=== PATIENT | male | born 1940 | race Caucasian/White ===

== ENCOUNTER 2020-10-08 08:53 | Emergency (ER) | payer MEDICARE, BC ==
[~2020-10-08] VITALS: Ht 180.3 cm; Wt 90.9 kg
[2020-10-08 09:02] VITALS: TEMP 98
[2020-10-08 12:13] VITALS: BP 139/73; PULSE 50
== END 2020-10-08 11:05 | disposition home or self-care (01) ==
LOC: COL.ER 08:53
DX: S09.90XA Unspecified injury of head, initial encounter (principal); S01.01XA Laceration without foreign body of scalp, initial encounter; M54.2 Cervicalgia; E10.9 Type 1 diabetes mellitus without complications; I10 Essential (primary) hypertension; Z23 Encounter for immunization; W01.198A Fall on same level from slipping, tripping and stumbling with subsequent striking against other object, initial encounter; Y93.K1 Activity, walking an animal

== ENCOUNTER 2023-01-12 15:20 | Observation (INO) | payer MEDICARE, BC ==
[~2023-01-12] VITALS: Ht 177.8 cm; Wt 95.2 kg
[2023-01-12 15:48] LABS: BASO # 0.1 K/mm3 (0.0-0.2); BASO % 0.3 % (0.0-2.0); EOS # 0.2 K/mm3 (0.0-0.7); EOS % 1.4 % (0.0-4.0); GRAN # 11.2 K/mm3 (1.4-6.5); GRAN % 76.7 % (42.2-75.2); HEMATOCRIT 42.7 % (42.0-52.0); LYMPH # 1.8 K/mm3 (1.2-3.4); MEAN CELL VOLUME 88 fl (80.0-100.0); MEAN CORPUSCULAR HEMOGLOBIN 31 pg (27-31); MEAN CORPUSCULAR HGB CONC 35 g/dl (33.0-37.0); MONO # 1.3 K/mm3 (0.1-0.6); MONO % 8.8 % (1.7-9.3); PLATELET COUNT 252 K/mm3 (130-400); RED BLOOD COUNT 4.83 M/mm3 (4.20-5.60); REDCELL DISTRIBUTION WIDTH-CV 12.2 % (11.5-14.5)
[2023-01-12 15:52] LABS: PROTHROMBIN TIME 10.5 SECONDS (9.7-12.8)
[2023-01-12 16:03] LABS: ALANINE AMINOTRANSFERASE 18 U/L (0-55); ALBUMIN 3.5 gm/dL (3.4-4.8); ALKALINE PHOSPHATASE 101 U/L (40-150); ANION GAP 10 mmol/L (7-16); AST,SGOT 16 U/L (5-34); BILIRUBIN,TOTAL 0.5 mg/dL (0.2-1.2); BLOOD UREA NITROGEN 12 mg/dL (8-26); CALCIUM 10.1 mg/dL (8.4-10.2); CARBON DIOXIDE 24 mmol/L (23-31); CHLORIDE 97 mmol/L (98-107); CREATINE KINASE 51 U/L (30-200); CREATININE, serum 0.86 mg/dL (0.72-1.25); GLUCOSE 141 mg/dL (70-99); POTASSIUM 3.3 mmol/L (3.5-4.5); SODIUM 131 mmol/L (136-145); TOTAL PROTEIN 6.6 gm/dL (6.2-8.1); TROPONIN-I < 0.010 ng/mL (0.00-0.033)
[2023-01-12 19:45] VITALS: BP 142/68; PULSE 67; TEMP 98.4
[2023-01-12 20:50] VITALS: BP_SYST 142
[2023-01-12] MEDS ORDERED: FLOMAX 0.40.4 MG/CAP PO (21:11)
[2023-01-12] MEDS ORDERED: OMEGA-3 1000 MG1 CAP PO (21:11)
[2023-01-12] MEDS ORDERED: LIPITOR 40MG TA40 MG PO (21:12)
[2023-01-12] MEDS ORDERED: COZAAR 50MG50 MG/TAB PO (21:13)
[2023-01-12] MEDS ORDERED: EUTHYROX175 MCG PO (21:14)
[2023-01-12] MEDS ORDERED: SINGULAIR 110 MG/TAB PO (21:15)
[2023-01-12] MEDS ORDERED: PRIL40 PO (21:16)
[2023-01-12] MEDS ORDERED: LOZOL 2.5M2.5 MG/TAB PO (21:17)
[2023-01-12] MEDS ORDERED: ASPIRIN E.C. 8181 MG PO (21:18)
[2023-01-12] MEDS ORDERED: VITAMIN E 400 U4001 PO (21:24)
[2023-01-12] MEDS ORDERED: PROFERRIN ES12 MG PO (21:25)
[2023-01-12] MEDS ORDERED: INSULIN AS100 UNIT/2 (21:26)
[2023-01-12 23:44] VITALS: BP 136/67; PULSE 69; TEMP 98.2
[2023-01-13 00:05] VITALS: BP_SYST 136
[2023-01-13 02:57] VITALS: BP 125/58; PULSE 68; TEMP 98
[2023-01-13 04:05] VITALS: BP_SYST 125
--- NOTE | 2023-01-13 05:05 | NUR ---
PT ARRIVED TO THE MEDICAL FLOOR AROUND 1945HRS TO ROOM 319. PT A&O X 4; VSS; O2 RA. PT COMPLAINED OF HEARTBURN. HOSPITALIST CALLED. PROTONIX ORDERED AND GIVEN. PT DENIED GENERAL PAIN, CHEST PAIN, PALPITATIONS, SOB, N,V,D OR DIZZINESS. ADMISSIONS ASSESSMENT AND MED REC COMPLETE. PT HAS CAST TO RLE AND USES A KNEE SCOOTER TO ACCESS WITH AMBULATION. PT ORIENTED TO ROOM AND HOSPITAL POLICY. ALL QUESTIONS AND CONCERNS ADDRESSED. PT EXPRESSED NO ADDITIONAL NEEDS AT THIS TIME. CALL LIGHT WITHIN REACH.
[2023-01-13 06:13] LABS: HEMOGLOBIN 13.1 g/dl (13.5-18.0); MEAN CELL VOLUME 88 fl (80.0-100.0); MEAN CORPUSCULAR HEMOGLOBIN 31 pg (27-31); MEAN CORPUSCULAR HGB CONC 35 g/dl (33.0-37.0); MEAN PLATELET VOLUME 9.1 fl (7.4-10.4); PLATELET COUNT 222 K/mm3 (130-400); REDCELL DISTRIBUTION WIDTH-CV 12.2 % (11.5-14.5)
[2023-01-13 06:30] LABS: ALBUMIN 2.7 gm/dL (3.4-4.8); BILIRUBIN,TOTAL 0.8 mg/dL (0.2-1.2); CALCIUM 9.2 mg/dL (8.4-10.2); CREATININE, serum 0.78 mg/dL (0.72-1.25); TOTAL PROTEIN 5.3 gm/dL (6.2-8.1)
[2023-01-13 07:08] VITALS: BP 139/67; PULSE 63; TEMP 98
--- NOTE | 2023-01-13 08:50 | NUR ---
PT AWAKE IN ROOM UPON ENTERING. ASSESSMENT DONE, PT DENIES PAIN AT THIS TIME. FLUIDS RUNNING PER ORDER AND LUNGS CTA. PT HAS CAST TO RIGHT LOWER EXTREMITY, NO SWELLING OR REDNESS NOTED AROUND TOP AND BOTTOM OF CAST. THIS NURSE IS ABLE TO FIT 2 FINGERS IN CAST BUT UNABLE TO CHECK PULSES ON RIGHT FOOT, PT DENIES PAIN AROUND OR INSIDE CAST. BED IN LOWEST POSITION, CALL LIGHT IN REACH.
[2023-01-13 09:00] VITALS: BP_SYST 139
[2023-01-13 11:05] VITALS: BP 131/62; PULSE 66; TEMP 98.6
--- NOTE | 2023-01-13 12:32 | NUR ---
Care Transition Coordinator rounds: Patient and his are waiting for paperwork to go home today. Care Transition Coordinator provided them a newspaper. Patient's and Care Transition Coordinator know each other from another healthcare provider. and Care Transition Coordinator spoke about that time. Care Transition Coordinator wished them well and safety on their way home today.
--- NOTE | 2023-01-13 12:57 | NUR ---
IV AND TELE REMOVED. DISCHARGE INSTRUCTIONS GIVEN TO PT AND , BOTH VERBALIZED UNDERSTANDING. NEW MEDICATION GIVEN BY PHARMASCIST AND PERSONAL MEDS GIVEN BACK TO PT. PT DENIES NEEDS AT THIS TIME. PT ESCORTED BY STAFF TO PERSONAL VEHICLE WITH PERSONAL WALKER.
--- NOTE | 2023-01-13 14:31 | NUR ---
SW met with patient to complete intake. Patient provides that he lives with spouse Denise Tobar [phone]. Patient provides that he utilizes a knee walker, is independent with ADL's, and does not utilize HH services at this time. PCP is Dr. Nicole, and pharmacy is [facility]. Appointed DPOA is spouse, and dc plan is home. SW will continue to follow. DC plan: home
[2023-01-13] MEDS ORDERED: ELIQUIS 5MG PO (16:46)
== END 2023-01-13 13:00 | disposition home or self-care (01) ==
LOC: COL.ER 15:20 → MEDICAL 18:46 → COL.ER 18:56 → MEDICAL 18:56
PROVIDERS: Emergency Medicine; Physician Assistant; ADMIT Internal Medicine
DX: I26.99 Other pulmonary embolism without acute cor pulmonale (principal); I25.10 Atherosclerotic heart disease of native coronary artery without angina pectoris; I10 Essential (primary) hypertension; E11.9 Type 2 diabetes mellitus without complications; G47.33 Obstructive sleep apnea (adult) (pediatric); E87.6 Hypokalemia; E03.9 Hypothyroidism, unspecified; N40.0 Benign prostatic hyperplasia without lower urinary tract symptoms; E78.5 Hyperlipidemia, unspecified; Z95.5 Presence of coronary angioplasty implant and graft; Z79.899 Other long term (current) drug therapy; Z79.890 Hormone replacement therapy
CPT/HCPCS: G0378; J1650; J3480; J7030; Q9967

== ENCOUNTER 2024-01-16 09:20 | Inpatient (IN) | payer MEDICARE, BC ==
[~2024-01-16] VITALS: Ht 177.8 cm; Wt 89.1 kg
[2024-01-16] VITALS (159 sets, daily range): BP systolic 116–136; BP diastolic 55–59; PULSE 75–77; TEMP 97.9–98.7; O2SAT 89–100
[~2024-01-16 09:20] MED LIST: ASPIRIN E.C. 8181 MG PO; COZAAR 50MG50 MG/TAB PO; ELIQUIS 5MG PO; EUTHYROX175 MCG PO; FLOMAX 0.40.4 MG/CAP PO; INSULIN AS100 UNIT/2; IRON TABLETS325 MG PO; LIPITOR 40MG TA40 MG PO; LOZOL 2.5M2.5 MG/TAB PO; OMEGA-3 1000 MG1 CAP PO; PRIL40 PO; SINGULAIR 110 MG/TAB PO; VITAMIN E 400 U4001 PO
[2024-01-16] MEDS ORDERED: NS 1,000 ML IV ONE (10:15)
[2024-01-16 10:24] LABS: BASO # 0.1 K/mm3 (0.0-0.2); BASO % 0.6 % (0.0-2.0); EOS # 0.2 K/mm3 (0.0-0.7); EOS % 1.5 % (0.0-4.0); GRAN # 10.3 K/mm3 (1.4-6.5); GRAN % 72.7 % (42.2-75.2); HEMATOCRIT 43.2 % (42.0-52.0); HEMOGLOBIN 14.8 g/dl (13.5-18.0); LYMPH # 2.7 K/mm3 (1.2-3.4); MEAN CELL VOLUME 92 fl (80.0-100.0); MEAN CORPUSCULAR HEMOGLOBIN 32 pg (27-31); MEAN CORPUSCULAR HGB CONC 34 g/dl (33.0-37.0); MEAN PLATELET VOLUME 9.7 fl (7.4-10.4); MONO # 0.8 K/mm3 (0.1-0.6); MONO % 5.4 % (1.7-9.3); PLATELET COUNT 279 K/mm3 (130-400); REDCELL DISTRIBUTION WIDTH-CV 12.3 % (11.5-14.5)
[2024-01-16 10:37] LABS: ALANINE AMINOTRANSFERASE 18 U/L (0-55); ALBUMIN 3.6 g/dL (3.4-4.8); ALKALINE PHOSPHATASE 81 U/L (40-150); ANION GAP 22 mmol/L (7-16); AST,SGOT 16 U/L (5-34); BILIRUBIN,TOTAL 1.1 mg/dL (0.2-1.2); BLOOD UREA NITROGEN 29 mg/dL (8-26); CALCIUM 10.6 mg/dL (8.4-10.2); CHLORIDE 96 mEq/L (98-107); CREATININE, serum 1.57 mg/dL (0.72-1.25); LIPASE 12 U/L (8-78); POTASSIUM 4.5 mEq/L (3.5-4.5); SODIUM 133 mEq/L (136-145); TOTAL PROTEIN 6.5 g/dl (6.2-8.1)
[2024-01-16] MEDS ORDERED: Ondansetron 4 MG/2 ML VIAL IV ONE (10:45)
[2024-01-16] MEDS ORDERED: Insulin Human Regular/NS 100 ML IV ONE (11:30)
[2024-01-16 11:41] LABS: GLUCOSE 465 mg/dL (70-99)
[2024-01-16 12:21] LABS: ACETONE,SERUM SMALL
[2024-01-16] MEDS ORDERED: D5 1/2 NS 1,000 ML IV SCH (13:00)
[2024-01-16] MEDS ORDERED: Insulin Human Regular/NS 100 ML IV SCH (13:00)
[2024-01-16] MEDS ORDERED: NS 1,000 ML IV SCH (13:00)
[2024-01-16 14:04] LABS: COLLECTION METHOD CLEAN CATCH
[2024-01-16] MEDS ORDERED: *Potassium Replacement Protocol MC SCH ×2 (14:15→22:45)
[2024-01-16 14:25] LABS: PH 5.5 (5.0-8.5); URINE APPEARANCE CLEAR (CLEAR/HAZY); URINE BLOOD NEGATIVE (NEGATIVE); URINE COLOR YELLOW (YELLOW); URINE GLUCOSE 3+ (NEGATIVE); URINE KETONE 3+ (NEGATIVE); URINE NITRATE NEGATIVE (NEGATIVE); URINE PROTEIN(semi-quant) TRACE (NEGATIVE)
[2024-01-16 15:11] LABS: CREATININE, serum 1.47 mg/dL (0.72-1.25); MAGNESIUM 1.7 mg/dL (1.6-2.6); PHOSPHOROUS 3.1 mg/dL (2.3-4.7)
--- NOTE | 2024-01-16 15:35 | NUR ---
Pt arrived to room ICU 4 at 1424. Pt oriented to room. Pt attached to critical care monitors. Insulin gtt infusing at 6 units per hour. Pt updated on POC and verbalized understanding. Call light within reach. Will coitnue with POC.
[2024-01-16] MEDS ORDERED: Heparin 5,000 UNITS/ML 1 ML VIAL SQ SCH (16:00)
[2024-01-16 17:29] LABS: CALCIUM 9.6 mg/dL (8.4-10.2); CREATININE, serum 1.31 mg/dL (0.72-1.25); MAGNESIUM 1.7 mg/dL (1.6-2.6); PHOSPHOROUS 2.1 mg/dL (2.3-4.7); POTASSIUM 3.7 mEq/L (3.5-4.5)
[2024-01-16] MEDS ORDERED: Potassium Phoshate 20 MM in NS 250 ML IV ONE (17:45)
[2024-01-16] MEDS ORDERED: Mag/Al Hydrox/Simeth Susp 30 ML CUP PO ONE (17:45)
[2024-01-16 21:24] LABS: CALCIUM 9.1 mg/dL (8.4-10.2); CREATININE, serum 1.2 mg/dL (0.72-1.25); MAGNESIUM 1.7 mg/dL (1.6-2.6); PHOSPHOROUS 2.3 mg/dL (2.3-4.7); POTASSIUM 3.5 mEq/L (3.5-4.5)
[2024-01-16] MEDS ORDERED: Potassium Chloride 100 ML IV SCH (22:45)
[2024-01-16] MEDS ORDERED: Insulin Glargine-ygfn (Lantus) SQ ONE (23:30)
[2024-01-17] VITALS (37 sets, daily range): BP systolic 109–112; BP diastolic 50–75; PULSE 57–75; TEMP 98.2–98.3; O2SAT 98–100
[2024-01-17] MEDS ORDERED: Acetaminophen 500 MG TAB PO PRN (00:15)
[2024-01-17 00:41] LABS: CALCIUM 8.9 mg/dL (8.4-10.2); CREATININE, serum 1.11 mg/dL (0.72-1.25); MAGNESIUM 1.8 mg/dL (1.6-2.6); POTASSIUM 4.5 mEq/L (3.5-4.5)
[2024-01-17] MEDS ORDERED: Glucagon 1 MG VIAL IM PRN (03:15)
[2024-01-17] MEDS ORDERED: Insulin Regular Human (NovoLIN R/HumuLIN R) SQ ONE (03:15)
[2024-01-17] MEDS ORDERED: Dextrose (Glucose) 15 GM (4 x 3.75 GM) Chewable TABLET PACK PO PRN (03:15)
[2024-01-17] MEDS ORDERED: Dextrose 50% Water 25 GM/50 ML SYRINGE IV PRN (03:15)
[2024-01-17] MEDS ORDERED: Insulin Lispro (HumaLOG) SQ SCH ×2 (04:00)
[2024-01-17 05:32] LABS: BASO # 0.1 K/mm3 (0.0-0.2); BASO % 0.5 % (0.0-2.0); EOS # 0.2 K/mm3 (0.0-0.7); EOS % 1.7 % (0.0-4.0); GRAN # 9.3 K/mm3 (1.4-6.5); GRAN % 70.7 % (42.2-75.2); LYMPH # 2.2 K/mm3 (1.2-3.4); LYMPH % 16.5 % (20.0-51.0); MEAN CORPUSCULAR HGB CONC 36 g/dl (33.0-37.0); MEAN PLATELET VOLUME 9.3 fl (7.4-10.4); MONO # 1.3 K/mm3 (0.1-0.6); MONO % 10.1 % (1.7-9.3); PLATELET COUNT 229 K/mm3 (130-400); RED BLOOD COUNT 3.87 M/mm3 (4.20-5.60); REDCELL DISTRIBUTION WIDTH-CV 12.6 % (11.5-14.5)
[2024-01-17 05:35] LABS: HEMATOCRIT 33.8 % (42.0-52.0); HEMOGLOBIN 12.1 g/dl (13.5-18.0); MEAN CELL VOLUME 87 fl (80.0-100.0); MEAN CORPUSCULAR HEMOGLOBIN 31 pg (27-31)
[2024-01-17 05:42] LABS: CALCIUM 8.4 mg/dL (8.4-10.2); CREATININE, serum 1.05 mg/dL (0.72-1.25)
--- NOTE | 2024-01-17 08:37 | NUR ---
fabric worker foreman met with pt to discuss discharge planning as Dr. Felipe reports he is discharging today. Patient and his son, Marcelo was present to discuss. Pt lives with his , Denise [phone] in [place]. He sees Dr. Schultz for PCP needs and obtains medications from [facility] with no difficulties. He verified to have Medicare A/B and BCBS insurance. Pt is independent with ADLS and uses a CPAP for DME. He reports to have a DPOA-HC at home likely, listing his son Marcelo. Pt reports no concerns for discharge and is eager to leave. Discharg Plan: home
--- NOTE | 2024-01-17 09:17 | NUR ---
PATIENT LAYING IN BED WITH JEZOYA ON READY TO DISCHARGE. I INFORMED PATIENT THAT WE NEED THE DOCTOR TO ROUND FIRST BEFORE WE MOVE ON TO THE DISCHARGE. PATIENT WAS UNDERSTANDING. PATIENT BS WNL, PATIENT HAS FRIEND BY BEDSIDE AWAITING HIS EXPECTED DISCHARGE WITH PATIENT
[2024-01-17] MEDS ORDERED: Insulin Glargine-ygfn (Lantus) SQ ONE (10:00)
--- NOTE | 2024-01-17 14:37 | NUR ---
Initial visit; introduced herself to patient who thanked Quantitative Strategy Analyst for looking in on him but is almost ready to be discharged. Quantitative Strategy Analyst wished him well and offered God's blessings. He and his friend or family member thanked for stopping.
== END 2024-01-17 10:22 | disposition home or self-care (01) | DRG 638 ==
LOC: COL.ER 09:20 → ICU 11:58
PROVIDERS: Physician Assistant; ADMIT Internal Medicine
DX: E10.10 Type 1 diabetes mellitus with ketoacidosis without coma (principal); N17.9 Acute kidney failure, unspecified; I25.10 Atherosclerotic heart disease of native coronary artery without angina pectoris; I10 Essential (primary) hypertension; E78.5 Hyperlipidemia, unspecified; G47.33 Obstructive sleep apnea (adult) (pediatric); Z95.5 Presence of coronary angioplasty implant and graft; Z79.4 Long term (current) use of insulin; Z79.84 Long term (current) use of oral hypoglycemic drugs; Z79.899 Other long term (current) drug therapy; Z23 Encounter for immunization; Z86.711 Personal history of pulmonary embolism
CPT/HCPCS: J1644; J1815; J2405; J3480; J7030; J7050